=== PATIENT | male | born 1970 | race Caucasian/White ===

== ENCOUNTER → 2020-10-18 15:45 | Outpatient (CLI) | payer OTHER, SELFPAY ==
[2020-10-18] MEDS: COVID-19 VACC, Ad26(JANSSEN)/PF 0.5 ML IM (16:08)
== END ==
PROVIDERS: Visit Provider Internal Medicine
DX: Z23 Encounter for immunization (principal)
CPT/HCPCS: 0031A; 91303

== ENCOUNTER → 2021-01-14 11:39 | Outpatient (CLI) | payer OTHER, SELFPAY ==
--- NOTE | 2021-01-14 11:40 | DI.RAD.S_ITS ---
PROCEDURE: XR HIP W PEL IF DONE LT 2V INDICATIONS: pain TECHNIQUE: AP pelvis with lateral view(s) of the left hip(s). COMPARISON: None. FINDINGS: Bones: No fractures or dislocations. Mild left hip joint osteoarthritic changes are seen. No evidence of avascular necrosis of femoral head. Pelvic ring appears intact. No suspicious bony lesions. Soft tissues: The visualized bowel gas pattern is normal. No suspicious soft tissue calcifications. IMPRESSION: No left hip fracture or dislocation. Mild left hip osteoarthritis. No evidence of avascular necrosis. Dictated by: Cash Lassiter M.D. on 01/14/2021 at 12:08 Approved by: Cash Lassiter M.D. on 01/14/2021 at 12:08
== END ==
PROVIDERS: Referring Provider Physician Assistant; Visit Provider Physician Assistant
DX: M25.552 Pain in left hip (principal); M16.12 Unilateral primary osteoarthritis, left hip
CPT/HCPCS: 73502

== ENCOUNTER → 2023-10-12 12:25 | Outpatient (CLI) | payer OTHER, SELFPAY ==
--- NOTE | 2023-10-12 | DI.MRI.S_ITS ---
PROCEDURE: MR KNEE RT WO CON INDICATIONS: Pain in right knee TECHNIQUE: Noncontrast sagittal PD fast spin echo and T2 fast spin echo with fat saturation, sagittal 3-D FLASH with fat saturation; coronal T1 spin echo and PD fast spin echo with fat saturation, and axial PD fast spin echo with fat saturation through the knee. COMPARISON: [facility], CR, XR KNEE 4+ VIEWS RIGHT, 10/01/2023, 8:22. FINDINGS: Image quality: Excellent. Menisci: Linear horizontal high T2 signal intensity traverses the inner, middle, and peripheral thirds of the posterior horn medial meniscus, demonstrating inferior articular surface extension, indicating horizontal tearing. Lateral meniscus is intact. Cruciate ligaments: The anterior and posterior cruciate ligaments appear intact. Medial structures: The medial collateral ligament appears intact. Visualized portions of the pes anserinus tendons appear normal. Mild T2 signal elevation within and adjacent to the tibial insertion site of the semimembranosus. No abnormal bursal fluid. Lateral structures: The lateral collateral ligament demonstrates mild T2 signal elevation at the femoral origin. The long and short heads of the biceps femoris tendon appear intact. The popliteus tendon appears normal. Iliotibial band appears normal. Anterior structures: The quadriceps and patellar tendons appear intact. Mild T2 signal elevation within the quadriceps tendon at the patellar insertion site. Patellar alignment is normal. No femoral trochlear dysplasia or ventral trochlear prominence. No edema in the infrapatellar fat pad. Bones and cartilage: No bone marrow contusions or fractures. Mild tricompartmental periarticular osteophyte formation. Moderate articular cartilage loss diffusely overlies the weight-bearing aspects of the medial femoral condyle and medial tibial plateau. There is a focal high-grade articular cartilage defect overlying the patellar apex measuring roughly 5 mm transverse. Joint space: There is a moderate knee joint effusion. No Goyal's cyst. Normal appearing synovial plicae are incidentally noted. IMPRESSION: 1. Tricompartmental osteoarthritis with associated articular cartilage loss. 2. Quadriceps tendinopathy. 3. Medial meniscal tearing. 4. Low-grade tearing of the lateral collateral ligament. 5. Knee joint effusion. Dictated by: Mick Akers M.D. on 10/12/2023 at 14:15 Approved by: Mick Akers M.D. on 10/12/2023 at 14:23
== END ==
PROVIDERS: Referring Provider Orthopaedic Surgery Adult Reconstructive Orthopaedic Surgery; Visit Provider Orthopaedic Surgery Adult Reconstructive Orthopaedic Surgery
DX: S83.241A Other tear of medial meniscus, current injury, right knee, initial encounter (principal); S83.421A Sprain of lateral collateral ligament of right knee, initial encounter; M17.11 Unilateral primary osteoarthritis, right knee; M25.461 Effusion, right knee; M25.561 Pain in right knee
CPT/HCPCS: 73721

== ENCOUNTER 2025-06-20 21:36 | Emergency (ER) | payer OTHER, SELFPAY ==
[2025-06-20] VITALS (8 sets, daily range): BP systolic 207–210; BP diastolic 96–111; PULSE 62–76; RESP 19–25; TEMP 36.8; O2SAT 96–97; BMI 34.8
--- NOTE | 2025-06-20 22:07 | DI.RAD.S_ITS ---
PROCEDURE: XR CHEST 1V INDICATIONS: Chest Pain TECHNIQUE: One view of the chest was acquired. COMPARISON: None. FINDINGS: Surgical changes and devices: None. Lungs and pleura: Lungs are clear. No pleural effusions or pneumothorax. Mediastinum: Mediastinal contours appear normal. Heart size is normal. Bones and chest wall: No suspicious bony lesions. Overlying soft tissues appear unremarkable. IMPRESSION: No acute cardiopulmonary abnormality is seen. Dictated by: Ash Sanford M.D. on 06/20/2025 at 22:47 Approved by: Ash Sanford M.D. on 06/20/2025 at 22:47
[2025-06-20 22:17] LABS: Add Manual Diff / Slide Review NO; Hematocrit 45.0 % (41-53); Hemoglobin 15.1 g/dL (13.5-17.5); Lymphocytes Absolute Auto 1900 /uL (1100-4500); Mean Corpuscular HGB Conc 33.6 % (30-36); Mean Corpuscular Hemoglobin 28.9 PG (26-34); Mean Corpuscular Volume 86.1 fL (80-100); Platelet Count 217 X10^3/uL (150-400)
--- NOTE | 2025-06-20 22:23 | EKG_ITS ---
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
[2025-06-20 22:24] LABS: INR 1.1 (0.9-1.3); Prothrombin Time 12.0 SECONDS (9.4-12.5)
[2025-06-20 22:27] LABS: PTT Partial Thromboplastin Tim 28 SECONDS (25.1-36.5)
[2025-06-20 22:32] LABS: Alanine Aminotransferase 28 IU/L (<50); Albumin 4.6 g/dL (3.5-5.0); Albumin Globulin Ratio 1.3 (1.0-2.8); Alkaline Phosphatase 57 U/L (38-126); Blood Urea Nitrogen 19 mg/dL (9-20); Calcium 8.9 mg/dL (8.4-10.2); Carbon Dioxide 23 mmol/L (22-32); Chloride 103 mmol/L (98-107); Creatine Kinase 169 U/L (55-170); Estimated Glomerular Filt Rate > 60 mL/min (>60); Globulin 3.5 g/dL (1.7-4.1); Glucose 114 mg/dL (70-99); HEMOLYSIS 18 (0-50); Lipase 119 U/L (23-300); Magnesium 2.1 mg/dL (1.6-2.3); Potassium 3.9 mmol/L (3.4-5.1); Sodium 137 mmol/L (137-145); Total Protein 8.1 g/dL (6.3-8.2)
[2025-06-20 22:43] LABS: NT-proBNP (BNP-Adult 18+) 23 pg/mL (<125); Troponin I < 0.012 ng/mL (0.01-0.034)
--- NOTE | 2025-06-20 22:49 | ED.GENADULT ---
HPI - General Adult General Chief complaint: Hypertension Stated complaint: High bp 225/133 Time Seen by Provider: 06/20/25 22:18 Source: patient Mode of arrival: Ambulatory History of Present Illness HPI narrative: Patient here for high blood pressure. He has no symptoms. No headache chest pain vision changes numbness tingling or weakness. No dyspnea. Patient was touring his daughter's work place at [facility] went they decided to randomly take his blood pressure measurement because he has not had his blood pressure taken in over 5 years. It was very high. Patient has not seen a provider or taken blood pressure for at least 3 years. He was never advised to take blood pressure medication. No personal or family history of heart attack strokes. Patient is not smoke. Patient in no distress at this time. Related Data Previous Rx's ?Medication ?Instructions ?Recorded lisinopril 10 mg tablet 10 mg PO BID #60 tabs 06/21/25 Allergies Allergy/AdvReac Type Severity Reaction Status Date / Time No Known Drug Allergies Allergy Verified 06/10/21 14:57 Review of Systems Review of Systems Narrative: GENERAL: Negative chills, fatigue, malaise, fever, sweats. HEENT: Negative sinus pain, ear pain, sore throat RESPIRATORY: Negative dyspnea, cough CARDIOVASCULAR: Negative chest pain, palpitations GASTROINTESTINAL: Negative vomiting, nausea, abdominal pain : Negative dysuria, frequency, hematuria MUSCULOSKELETAL: Negative muscle or bony pain SKIN: Negative rash, skin lesions NEUROLOGIC: Negative weakness, numbness ROS Unobtainable: All systems reviewed & are unremarkable except as noted in HPI and below Patient History Social History Smoking Status: Never smoker Smoking Status: Never smoker Exam Narrative Exam Narrative: GENERAL: in no distress, not toxic not dyspneic HEAD: Normocephalic. EYES: Pupils equal round ENT: Mucous membranes moist. NECK: Trachea midline. CARDIOVASCULAR: Regular rate and rhythm RESPIRATORY: Clear to auscultation. Breath sounds equal bilaterally. No wheezes, rales, or rhonchi. GASTROINTESTINAL: Abdomen soft, non-tender BACK: No flank tenderness. EXTREMITIES: No gross deformities. NEURO: AOx4. Clear speech SKIN: Warm and dry PSYCH: Not anxious, is cooperative Initial Vital Signs Initial Vital Signs: Vital Signs Temperature 98.3 F 06/20/25 22:00 Pulse Rate 76 06/20/25 22:00 Respiratory Rate 20 06/20/25 22:00 Blood Pressure 210/111 H 06/20/25 22:00 Pulse Oximetry 97 06/20/25 22:00 Oxygen Delivery Method Room Air 06/20/25 22:00 Course Orders Ordered: Discontinued Medications Lisinopril (Lisinopril 10 Mg Tablet) 10 mg PO NOW ONE Stop: 06/20/25 22:45 Last Admin: 06/20/25 22:55 Dose: 10 mg Documented By: HNG Vital Signs Vital signs: Vital Signs - 8 hr 06/20/25 22:00 06/20/25 22:10 06/20/25 22:30 Temperature 98.3 F Pulse Rate 76 71 71 Respiratory Rate 20 25 H Blood Pressure 210/111 H Pulse Oximetry 97 97 97 Oxygen Delivery Method Room Air 06/20/25 22:30 06/20/25 22:55 06/20/25 23:00 Temperature Pulse Rate 66 63 Respiratory Rate 20 Blood Pressure 210/104 H 210/104 H Pulse Oximetry 97 Oxygen Delivery Method 06/20/25 23:01 06/20/25 23:01 06/20/25 23:30 Temperature Pulse Rate 64 62 Respiratory Rate 21 23 Blood Pressure 207/107 H Pulse Oximetry 96 96 Oxygen Delivery Method Room Air 06/20/25 23:31 06/20/25 23:31 06/21/25 00:00 Temperature Pulse Rate 63 59 L Respiratory Rate 19 20 Blood Pressure 207/96 H Pulse Oximetry 96 97 Oxygen Delivery Method Room Air 06/21/25 00:01 06/21/25 00:01 Temperature Pulse Rate 61 Respiratory Rate 20 Blood Pressure 200/95 H Pulse Oximetry 96 Oxygen Delivery Method Room Air Medical Decision Making Lab Data 06/20/25 22:10 06/20/25 22:10 Labs: Lab Results 06/20/25 Range/Units 22:10 WBC 7.5 (4.5-11.0) X10^3/uL RBC 5.22 (4.5-5.9) X10^6/uL Hgb 15.1 (13.5-17.5) g/dL Hct 45.0 (41-53) % MCV 86.1 (80-100) fL MCH 28.9 (26-34) PG MCHC 33.6 (30-36) % RDW 14.3 (11.6-14.8) % Plt Count 217 (150-400) X10^3/uL Neut % (Auto) 61.4 (50-75) % Lymph % (Auto) 25.5 (25-40) % [place] % (Auto) 8.5 (3-14) % Eos % (Auto) 3.3 (2-4) % Baso % (Auto) 1.3 (0-2) % Neut # (Auto) 4600 (9215-2865) /uL Lymph # (Auto) 1900 (4534-3467) /uL [place] # (Auto) 600 (0-900) /uL Eos # (Auto) 200 (0-450) /uL Baso # (Auto) 100 (0-100) /uL PT 12.0 (9.4-12.5) SECONDS INR 1.1 (0.9-1.3) APTT 28 (25.1-36.5) SECONDS Sodium 137 (137-145) mmol/L Potassium 3.9 (3.4-5.1) mmol/L Chloride 103 (98-107) mmol/L Carbon Dioxide 23 (22-32) mmol/L BUN 19 (9-20) mg/dL Creatinine 0.82 (0.66-1.25) mg/dL Estimated GFR > 60 (>60) mL/min BUN/Creatinine Ratio 23.2 H (6-22) Glucose 114 H (70-99) mg/dL Calcium 8.9 (8.4-10.2) mg/dL Magnesium 2.1 (1.6-2.3) mg/dL Total Bilirubin 0.3 (0.2-1.3) mg/dL AST 26 (17-59) IU/L ALT 28 (<50) IU/L Alkaline Phosphatase 57 (38-126) U/L Total Creatine Kinase 169 (55-170) U/L Troponin I < 0.012 (0.01-0.034) ng/mL NT-Pro-B Natriuret Pep 23 (<125) pg/mL Total Protein 8.1 (6.3-8.2) g/dL Albumin 4.6 (3.5-5.0) g/dL Globulin 3.5 (1.7-4.1) g/dL Albumin/Globulin Ratio 1.3 (1.0-2.8) Lipase 119 (23-300) U/L Imaging Data Chest x-ray: Radiologist's Impression: [address] [address] XRay Report Signed Patient: Gunnar Jones MR#: [id number] : 1970 Acct:[id number] Age/Sex: 55 / M Date of Service: 06/20/25 Loc: ED Accession Number: [id number] Procedure: XR chest 1V Ordering Provider: Gus Tolentino MD PROCEDURE: XR CHEST 1V INDICATIONS: Chest Pain TECHNIQUE: One view of the chest was acquired. COMPARISON: None. FINDINGS: Surgical changes and devices: None. Lungs and pleura: Lungs are clear. No pleural effusions or pneumothorax. Mediastinum: Mediastinal contours appear normal. Heart size is normal. Bones and chest wall: No suspicious bony lesions. Overlying soft tissues appear unremarkable. IMPRESSION: No acute cardiopulmonary abnormality is seen. Dictated by: Ash aSnford M.D. on 06/20/2025 at 22:47 Approved by: Ash Sanford M.D. on 06/20/2025 at 22:47 [facility] Narrative Medical decision making narrative: Patient here for high blood pressure. He has no symptoms. No headache chest pain vision changes numbness tingling or weakness. No dyspnea. Patient was touring his daughter's work place at [facility] went they decided to randomly take his blood pressure measurement because he has not had his blood pressure taken in over 5 years. It was very high. Patient has not seen a provider or taken blood pressure for at least 3 years. He was never advised to take blood pressure medication. No personal or family history of heart attack strokes. Patient is not smoke. Patient in no distress at this time. MDM After history and exam, EKG chest x-ray CBC CMP troponin, Cardiology consult Differential considered: Includes but not limited to hypertensive urgency hypertensive emergency essential hypertension Medical records reviewed: June 10, 2021 family care office visit with elevated blood pressure 174/105 Lab Test results independently reviewed as above. Pertinent findings: WBC 7.5 hemoglobin 15.1 hematocrit 45 platelets 217 INR 1.1 sodium 137 potassium 3.9 BUN 19 creatinine 0.82 GFR greater than 60 troponin less than 0.012 Independently reviewed EKG sinus rhythm rate [address]-elevation or depression. There is incomplete right bundle branch block. Imaging studies independently reviewed: Chest x-ray no acute finding Consultations: 10:45 p.m.. Spoke with Cardiology on-call, dr nicholas, recommends lisinopril 10 mg twice a day. Patient can follow up with primary care and with him as well. Goal is not to normalize blood pressure but have 20% reduction in MA P. Re-evaluations: 12:19 a.m.. Patient blood pressure has improved to 200/95. MA P has improved. Currently 130. Trending in corrected direction. Reviewed results with patient and daughter. Return precautions reviewed. They desire discharge home. Discussion: Appropriate for discharge home. Blood pressure has improved. Patient and daughter do understand goal is not to normalize blood pressure but for reduction 20% from MA P. cardiology service was contacted. Patient asymptomatic with his blood pressure. It was incidental finding. Diagnosis: Essential hypertension Discharge Plan Departure Patient Disposition: Home Clinical Impression: Hypertension Qualifiers: Hypertension type: unspecified Qualified Code(s): I10 - Essential (primary) hypertension Instructions: DI for High Blood Pressure Activity Restrictions/Additional Instructions: Your laboratory studies and workup has been reassuring. Your blood pressure has not improved. Cardiology service was contacted. Please call his office tomorrow for follow up. Prescription for blood pressure medication has been sent to your pharmacy to continue. Please do contact your insurance company for in network primary care provider to follow up with in a week. Return if worse if any questions or concerns. Prescriptions: New lisinopril 10 mg tablet 10 mg PO BID Qty: 60 0RF Stand Alone Forms: Patient Portal/API
[2025-06-21] VITALS: PULSE 59; RESP 20; O2SAT 97
[2025-06-21 00:01] VITALS: BP 200/95; PULSE 61; RESP 20; O2SAT 96
== END 2025-06-21 00:27 | disposition home or self-care (01) ==
PROVIDERS: Emergency Provider Emergency Medicine
DX: I10 Essential (primary) hypertension (principal); R07.9 Chest pain, unspecified
CPT/HCPCS: 36415; 71045; 80053; 82550; 83690; 83735; 83880; 84484; 85025; 85610; 85730; 93005; 99284